=== PATIENT | male | born 1965 | race African-American/Black ===

== ENCOUNTER 2023-02-10 00:58 | Outpatient (CLI) | payer BC, SELFPAY | END 2023-02-10 00:59 | disposition home or self-care (01) | LOC: AMB 02-11 16:12 | PROVIDERS: Visit Provider Student in an Organized Health Care Education/Training Program | DX: R42 Dizziness and giddiness (principal); R11.10 Vomiting, unspecified | CPT/HCPCS: A0425; A0427 ==

== ENCOUNTER 2023-02-10 01:37 | Emergency (ER) | payer BC, SELFPAY ==
[2023-02-10] VITALS (17 sets, daily range): BP systolic 128–160; BP diastolic 78–99; PULSE 70–82; RESP 16–71; TEMP 36.7; O2SAT 96–99; BMI 33.5
--- NOTE | 2023-02-10 01:54 | ED_ITS ---
HPI - General Adult General Date Seen: 02/10/23 Chief complaint: Nausea/Vomiting Stated complaint: nausea, vomitting Time Seen by Provider: 02/10/23 01:38 Source: patient and EMS Mode of arrival: EMS Limitations: no limitations History of Present Illness HPI narrative: Patient is a 58-year-old male presenting to the emergency department for nausea, vomiting, dizziness. Patient states he was fasting for 24 hours and broke his fast with some food he cut himself. After this he went to bed around midnight with states was in the can upset stomach she tried to go to the bathroom. While he was on the toilet he became very nauseated and dizzy. He says the room was spinning. Patient then vomited a large amount. EMS was called. EMS states when they got there he leg very pale and unsteady like his blood to pass out. They got the patient to their gurney and they state he has he appeared much improved. Vitals were stable for them. Patient states he is only dizzy when he tries to get up. Has not no CP dizziness with moving his head. States whenever he does try is get up the room spins. Symptoms go away when he lays back down. Denies ever having symptoms like this. Denies any recent viral infections. He received Zofran on the way is no longer feeling nauseated. States he has not had any abdominal pain. Denies vision changes, weakness, numbness, chest pain, shortness of breath, fevers, chills, diarrhea, constipation, dysuria. Related Data Home Medications Medication Instructions Recorded Confirmed No Known Home Medications 02/10/23 02/10/23 Allergies Allergy/AdvReac Type Severity Reaction Status Date / Time No Known Drug Allergies Allergy Verified 02/10/23 01:47 Review of Systems Status of ROS: Reports: 10 or more systems reviewed and unremarkable except as noted in History and below [facility] Social History Smoking Status: Never smoker Do you use any of these nicotine containing products: None How often do you have a drink containing alcohol: never AUDIT-C Alcohol total score: 0 Non-prescribed substance use: denies use Exam Narrative: Exam Narrative: Const: Well-nourished, Well-developed, in mild distress Eyes: PERRL, no conjunctival injection, and symmetrical lids HENT: Atraumatic external nose and ears. Moist mucous membranes. Neck: Symmetric, trachea midline, No thyromegaly. CVS: RRR, No murmurs or gallops. Peripheral pulses 2+ and equal in all extremities RESP: Unlabored respiratory effort. Clear to auscultation bilaterally. GI: Nontender/Nondistended, No rebound or guarding. MSK:Extremities w/o deformity, Normal Active ROM Skin: Warm, Dry. No rashes or lesions. Neuro: Normal Muscle tone, No focal neurological deficits. Psych: Awake, Alert, & Oriented x3. Appropriate mood and affect. Const: Vital Signs, click to edit/add: Vital Signs - 24 hr 02/10/23 01:44 02/10/23 02:00 02/10/23 02:30 Temperature 98.1 F Pulse Rate Pulse Rate [Left P ulse Oximeter] 70 70 78 Pulse Rate [orthos tatic lying] Pulse Rate [orthos tatic sitting] Pulse Rate [orthos tatic standing] Respiratory Rate 18 18 16 Blood Pressure Blood Pressure [Le ft Upper Arm] 128/78 134/83 130/83 Blood Pressure [or thostatic lying] Blood Pressure [or thostatic sitting] Blood Pressure [or thostatic standing ] Pulse Oximetry 97 97 97 Oxygen Delivery Me thod Room Air Room Air Room Air 02/10/23 03:00 02/10/23 03:07 02/10/23 03:20 Temperature Pulse Rate 75 82 Pulse Rate [Left P ulse Oximeter] 76 Pulse Rate [orthos tatic lying] Pulse Rate [orthos tatic sitting] Pulse Rate [orthos tatic standing] Respiratory Rate 16 Blood Pressure Blood Pressure [Le ft Upper Arm] 132/92 H Blood Pressure [or thostatic lying] Blood Pressure [or thostatic sitting] Blood Pressure [or thostatic standing ] Pulse Oximetry 98 97 96 Oxygen Delivery Me thod Room Air 02/10/23 03:26 02/10/23 03:28 02/10/23 03:30 Temperature Pulse Rate Pulse Rate [Left P ulse Oximeter] Pulse Rate [orthos tatic lying] Pulse Rate [orthos tatic sitting] Pulse Rate [orthos tatic standing] Respiratory Rate Blood Pressure 138/85 137/91 H 145/88 H Blood Pressure [Le ft Upper Arm] Blood Pressure [or thostatic lying] Blood Pressure [or thostatic sitting] Blood Pressure [or thostatic standing ] Pulse Oximetry 97 Oxygen Delivery Me thod 02/10/23 03:37 02/10/23 03:41 02/10/23 04:21 Temperature Pulse Rate Pulse Rate [Left P ulse Oximeter] Pulse Rate [orthos tatic lying] 72 Pulse Rate [orthos tatic sitting] 74 Pulse Rate [orthos tatic standing] 77 Respiratory Rate Blood Pressure 140/93 H 142/94 H Blood Pressure [Le ft Upper Arm] Blood Pressure [or thostatic lying] 138/85 Blood Pressure [or thostatic sitting] 137/91 H Blood Pressure [or thostatic standing ] 145/88 H Pulse Oximetry Oxygen Delivery Me thod 02/10/23 04:41 02/10/23 05:01 02/10/23 06:01 Temperature Pulse Rate Pulse Rate [Left P ulse Oximeter] Pulse Rate [orthos tatic lying] Pulse Rate [orthos tatic sitting] Pulse Rate [orthos tatic standing] Respiratory Rate 18 71 H Blood Pressure 152/97 H 160/99 H 137/88 Blood Pressure [Le ft Upper Arm] Blood Pressure [or thostatic lying] Blood Pressure [or thostatic sitting] Blood Pressure [or thostatic standing ] Pulse Oximetry 99 Oxygen Delivery Me thod Course Vital Signs Vital signs: Initial Vital Signs Temperature 98.1 F 02/10/23 01:44 Temperature Source Temporal Artery Scan 02/10/23 01:44 Pulse Rate 70 02/10/23 01:44 Respiratory Rate 18 02/10/23 01:44 Blood Pressure 128/78 02/10/23 01:44 Blood Pressure Mean 94 02/10/23 01:44 Blood Pressure Position Sitting 02/10/23 01:44 Pulse Oximetry 97 02/10/23 01:44 Oxygen Delivery Method Room Air 02/10/23 01:44 Vital Signs Temperature 98.1 F 02/10/23 01:44 Pulse Rate 70 02/10/23 01:44 Respiratory Rate 18 02/10/23 01:44 Blood Pressure 128/78 02/10/23 01:44 Pulse Oximetry 97 02/10/23 01:44 Oxygen Delivery Method Room Air 02/10/23 01:44 Temperature 98.1 F 02/10/23 01:44 Pulse Rate 72 02/10/23 03:37 Respiratory Rate 71 H 02/10/23 06:01 Blood Pressure 137/88 02/10/23 06:01 Pulse Oximetry 99 02/10/23 05:01 Oxygen Delivery Method Room Air 02/10/23 03:00 Medical Decision Making MDM Narrative Medical decision making narrative: Patient is a 58-year-old male with no pertinent medical problems presenting to emergency department for lightheadedness and dizziness. He had nausea earlier in her lower jaw vomiting resolved with Zofran. He is not dizzy at rest is only dizzy when he gets up. Movements of his head does not make him dizzy. Consid ering symptoms resolve whenever he lays back down and he has no other focal neurological findings appears very unlikely that this is stroke related. I do not believe it is necessary to call a code stroke. We will do CBC, CMP, troponin, lactate, magnesium. His also given a L of lactated Ringer's and 25 mg of meclizine. Lab work all returned showing no concerning abnormalities. Electrolyte are all normal. COVID and flu were negative. After the medication he continues to be dizzy when he gets up. He was able to walk to the bathroom and staff said he did appear woozy. We will do a head CT on a precaution. Denies any recent trauma. Orthostatic blood pressures were ordered as this could be blood pressure related. The orthostatic blood pressures did come back normal. Head CT results returned showing no concerning abnormalities. Patient has stated his symptoms have been improving. On evaluation at 04:30 patient states he is feeling better but it white going of to go home yet and would like to be revaluated at 07:00. Considering the time of night and fact that we are not in need of ED beds this is reasonable. On re-evaluation again at 07:00 patient states he is feeling much better now and symptoms are greatly improved. He is concerned a slightly hypertensive compared to his baseline but is only 137/88 emphasis not need to be addressed in the emergency department. I spoke to the patient about his comfort going home and he states that as long as I believe he is safe he feels comfortable being discharged. Again considering the symptoms only occur when he gets up and resolved when he is back at rest this seems very unlikely to be any type of stroke causing the symptoms. He has not have worsening symptoms with head movement so I cannot definitively say if this is vertigo in the meclizine does not really seem to have helped. She does have symptoms gain up which could be syncopal related but even when he gets up symptoms are not really felt until he starts walking. He was given 2 L of lactated Ringer's. Symptoms are now much improved and almost gone and I cannot definitively say what caused his symptoms but this time he is safe for discharge. Lab Data Labs: Lab Results 02/10/23 Range/Units 02:00 WBC 6.68 (4.50-11.00) K/uL RBC 5.20 (4.30-5.90) m/uL Hgb 15.4 (13.5-17.5) gm/dL Hct 46.8 (37.0-53.0) % MCV 90 (80-100) fL MCH 30 (26-34) pg MCHC 33 (32-36) gm/dL RDW Coeff of Mark 12.9 (11.5-15.5) % Plt Count 199 (140-440) K/uL Neut % (Auto) 41.3 L (42.0-72.0) % Lymph % (Auto) 46.7 H (20-44) % Cook % (Auto) 9.7 (0.0-11.0) % Eos % (Auto) 1.6 (0.0-7.0) % Baso % (Auto) 0.6 (0.0-3.0) % Neut # (Auto) 2.80 (1.7-7.0) K/uL Lymph # (Auto) 3.10 H (0.90-2.90) K/uL Cook # (Auto) 0.60 (0.00-0.90) K/UL Eos # (Auto) 0.11 (0.00-0.50) K/uL Baso # (Auto) 0.04 (0.00-0.30) K/uL Abs Immat Gran (auto) 0.01 (0.00-0.30) K/uL Imm/Tot Granulo (auto) 0.1 % Sodium 141 (135-149) mmol/L Potassium 3.6 (3.6-5.1) mmol/L Chloride 103 (96-114) mmol/L Carbon Dioxide 30 (20-32) mmol/L Anion Gap 8 (7-15) mEq/L BUN 16 (7-30) mg/dL Creatinine 1.1 (0.5-1.5) mg/dL Estimated Creat Clear 71.68 Estimated GFR 78 ml/min Glucose 109 (60-115) mg/dL Lactate 1.5 (0.5-1.9) mmol/L Calcium 8.7 (8.4-10.6) mg/dL Magnesium 1.9 (1.5-2.6) mg/dL Total Bilirubin 0.5 (0.1-1.5) mg/dL AST 27 (12-35) U/L ALT 25 (4-50) U/L Alkaline Phosphatase 48 (40-150) U/L Troponin I < 0.01 L (0.01-0.04) ng/mL Total Protein 7.5 (6.0-8.3) g/dL Albumin 4.3 (3.3-5.0) g/dL SARS-CoV-2 (PCR) Negative SARS-CoV-2 (Negative) Influenza Type A (PCR) Negative PCR FLU A (Negative) Influenza Type B (PCR) Negative PCR FLU B (Negative) Imaging Data CT scan - head: Radiologist's impression: INDICATION: Dizziness. TECHNIQUE: CT head without contrast. COMPARISON: None. FINDINGS: CSF spaces: Within normal limits for age. Brain parenchyma and extra-axial spaces: The butcher-white differentiation is normal. No sign of mass, hemorrhage, or midline shift. No extra-axial fluid collection. Skull base and calvarium: The visualized paranasal sinuses and mastoid air cells demonstrate no acute or significant findings. The visualized orbits are grossly unremarkable. No skull fractures. IMPRESSION: No acute intracranial abnormality identified. Please note that all CT scans at this facility use dose modulation, iterative reconstruction, and/or weight-based dosing when appropriate to reduce radiation dose to as low as reasonably achievable. Dictated by Liana Sheldon MD @ 02/10/2023 5:01:38 AM ECG Data Attestation: I personally reviewed and interpreted this ECG as follows: Prior ECG tracings: not available for review Interpretation: Normal sinus rhythm with a rate of 68 beats per minute, normal intervals, normal axis, no ST or T-wave abnormalities Discharge Plan Discharge Clinical Impression: Dizziness Patient Disposition: Home, Self-Care Condition: Improved Instructions: Dizziness (ED) Additional Instructions: Follow-up with your primary care provider symptoms continue. Return to the emergency department for any new or worsening symptoms Prescriptions: No Action No Known Home Medications Follow Up/Referrals: Provider,Not a Local [Primary Care Provider] - Stand Alone Forms: [employer] Info Instructions
[2023-02-10 02:04] LABS: Lactate* 1.5 mmol/L (0.5-1.9)
[2023-02-10 02:07] LABS: Basophils Absolute Auto 0.04 K/uL (0.00-0.30); Basophils Percent Auto 0.6 % (0.0-3.0); Eosinophils Absolute Auto 0.11 K/uL (0.00-0.50); Eosinophils Percent Auto 1.6 % (0.0-7.0); Hematocrit 46.8 % (37.0-53.0); Hemoglobin* 15.4 gm/dL (13.5-17.5); Immature Granulocytes Abs Auto 0.01 K/uL (0.00-0.30); Immature Granulocytes Pct Auto 0.1 %; Lymphocytes Percent Auto 46.7 % (20-44); Mean Corpuscular HGB Conc 33 gm/dL (32-36); Mean Corpuscular Hemoglobin 30 pg (26-34); Mean Corpuscular Volume 90 fL (80-100); Monocytes Percent Auto 9.7 % (0.0-11.0); Neutrophils Percent Auto 41.3 % (42.0-72.0); Platelet Count* 199 K/uL (140-440); RDW Coefficient of Variation % 12.9 % (11.5-15.5); White Blood Count* 6.68 K/uL (4.50-11.00)
[2023-02-10 02:09] LABS: Slide Review Reflex No
[2023-02-10] MEDS: MECLIZINE HCL 25 MG TABLET PO ×2 (02:13→03:25)
[2023-02-10] MEDS: LACTATED RINGERS 1000 ML 1,000 ML IV ×2 (02:13→03:44)
[2023-02-10 02:20] LABS: Albumin* 4.3 g/dL (3.3-5.0); Chloride* 103 mmol/L (96-114)
[2023-02-10 02:21] LABS: Potassium* 3.6 mmol/L (3.6-5.1); Sodium* 141 mmol/L (135-149)
[2023-02-10 02:23] LABS: Aspartate Amino Transferase* 27 U/L (12-35); Bilirubin Total* 0.5 mg/dL (0.1-1.5); Carbon Dioxide* 30 mmol/L (20-32); Creatinine* 1.1 mg/dL (0.5-1.5); Est. Creatinine Clearance* 71.68; Estimated Glomerular Filt Rate 78 ml/min; Total Protein* 7.5 g/dL (6.0-8.3)
[2023-02-10 02:24] LABS: Alanine Aminotransferase* 25 U/L (4-50); Alkaline Phosphatase* 48 U/L (40-150); Anion Gap 8 mEq/L (7-15); Blood Urea Nitrogen* 16 mg/dL (7-30); Calcium* 8.7 mg/dL (8.4-10.6); Glucose* 109 mg/dL (60-115); Magnesium* 1.9 mg/dL (1.5-2.6)
[2023-02-10 02:38] LABS: Troponin I* < 0.01 ng/mL (0.01-0.04)
[2023-02-10 02:45] LABS: PCR FLU A Negative PCR FLU A (Negative); PCR FLU B Negative PCR FLU B (Negative)
[2023-02-10 02:56] LABS: SARS PCR* Negative SARS-CoV-2 (Negative)
--- NOTE | 2023-02-10 02:57 | CRLHL7_ITS ---
For Patients: As a result of the Century Cures Act, medical imaging exams and procedure reports are released immediately into your electronic medical record. You may view this report before your referring provider. If you have questions, please contact your health care provider. INDICATION: Dizziness. TECHNIQUE: CT head without contrast. COMPARISON: None. FINDINGS: CSF spaces: Within normal limits for age. Brain parenchyma and extra-axial spaces: The butcher-white differentiation is normal. No sign of mass, hemorrhage, or midline shift. No extra-axial fluid collection. Skull base and calvarium: The visualized paranasal sinuses and mastoid air cells demonstrate no acute or significant findings. The visualized orbits are grossly unremarkable. No skull fractures. IMPRESSION: No acute intracranial abnormality identified. Please note that all CT scans at this facility use dose modulation, iterative reconstruction, and/or weight-based dosing when appropriate to reduce radiation dose to as low as reasonably achievable. Dictated by Liana Sheldon MD @ 02/10/2023 5:01:38 AM (Electronically Signed)
--- NOTE | 2023-02-10 05:15 | ED.NURSE ---
pt up to bathroom, states dizziness has improved, only slight dizziness when walking but improved. MD aware.
== END 2023-02-10 07:46 | disposition home or self-care (01) ==
PROVIDERS: Emergency Provider Student in an Organized Health Care Education/Training Program
DX: R42 Dizziness and giddiness (principal)
CPT/HCPCS: 36415; 70450; 80053; 83605; 83735; 84484; 85025; 87631; 93005; 96360; 96361; 99283; 99284; 99285; A9270; J7120